=== PATIENT | female | born 1965 | race Caucasian/White ===

== ENCOUNTER 2020-01-01 06:34 | Day surgery (SDC) | payer MEDICAID, SELFPAY ==
[2019-12-31 12:14] VITALS: BMI 35.6
--- NOTE | 2020-01-01 06:52 | W.PM.OPSUD ---
Surgery/Procedure H&P Update DATE OF PROCEDURE: January 01, 2020 DATE H&P PERFORMED: 12/02/19 H&P UPDATE INFORMATION: No changes to prior documentation PLANNED PROCEDURE: Operation Date: 01/01/20 07:30 Proposed Procedures p EGD(Not Applicable) - Jony Nunes MD
--- NOTE | 2020-01-01 07:01 | ANES.PREANE2 ---
Pre-Anesthetic Assessment Pre-Anesthetic Assessment: Height/Weight: Height 1.57 m Weight 88.451 kg Proposed Procedure: Operation Date: 01/01/20 07:30 Proposed Procedures p EGD(Not Applicable) - Jony Nunes MD Familial anesthetic complications: denies Was Beta Gregory taken within 24 hours: N/A Last intake: Intake Last Liquid Date 12/31/19 Last Liquid Time 22:30 Last Solid Date 12/31/19 Last Solid Time 17:00 Last Intake: 00:00 Social: Social History: Tobacco and No alcohol Packs per day: 1 ppd Pack years: 40 History/ROS: No significant history except as noted Pulmonary: Pulmonary: COPD and SOB CV/HEM: CV/HEM: Arrythmia and HTN : : None reported Hepatic: Hepatic: None reported GI: GI: GERD (controlled well ) Comments: hernia unsure what kind Metabolic: Metabolic: DM (pre diabetic ), Morbid obesity and Thyroid (hyothyroid ) Musc/skel: Musc/skel: None reported Neuropsych: Neuropsych: Anxiety, Bipolar and Depression Anesthetic Plan: ASA status: 3 Anesthesia: Anesthesia Evaluation and MAC Data Anesthesia Cardiac Studies: No Data to Display
[2020-01-01 07:03] VITALS: BP 152/110; PULSE 91; RESP 18; TEMP 36; O2SAT 99
[2020-01-01] MEDS: sodium chloride 0.9% 1,000 ML 30 ML IV (07:04)
[2020-01-01 07:39] VITALS: BP 157/104; PULSE 71; RESP 16; TEMP 36.3; O2SAT 97
[2020-01-01 07:48] VITALS: BP 158/92; PULSE 68; RESP 18; O2SAT 98
--- NOTE | 2020-01-01 08:11 | ANE.PACU2 ---
Inpatient post-anesthesia follow up: Airway intact: Yes Vital signs: Temperature 97.3 F Pulse Rate 68 Respiratory Rate 18 Blood Pressure 158/92 Pulse Oximetry 98 Oxygen Delivery Me thod Room Air Oxygen Flow Rate 3 Fraction of Inspir ed Oxygen Hydration adequate: Yes Nausea and vomiting: No Mental status: Baseline
[2020-01-02 06:34] LABS: H. Pylori / CLO Test Negative
== END 2020-01-01 07:55 | disposition home or self-care (01) ==
PROVIDERS: PCP Nurse Practitioner; Visit Provider Surgery
PROC: 0DJ08ZZ Inspection of Upper Intestinal Tract, Via Natural or Artificial Opening Endoscopic (ICD-10-PCS; CPT 43235; principal; 2020-01-01 07:30)
DX: R10.13 Epigastric pain (principal); R14.0 Abdominal distension (gaseous); K44.9 Diaphragmatic hernia without obstruction or gangrene; K29.70 Gastritis, unspecified, without bleeding; J44.9 Chronic obstructive pulmonary disease, unspecified; F17.210 Nicotine dependence, cigarettes, uncomplicated; I10 Essential (primary) hypertension; K21.9 Gastro-esophageal reflux disease without esophagitis; E11.9 Type 2 diabetes mellitus without complications; E66.01 Morbid (severe) obesity due to excess calories; Z68.35 Body mass index [BMI] 35.0-35.9, adult
CPT/HCPCS: 12345; 43239; 87077; J2704; J3010; J7030

== ENCOUNTER 2020-01-29 07:15 | Outpatient (CLI) | payer MEDICAID, SELFPAY ==
--- NOTE | 2020-01-29 07:20 | US_ITS ---
WS: [id number] RIGHT UPPER QUADRANT ULTRASOUND HISTORY: RUQ PAIN COMPARISON: None available. Liver: 17.3 cm in length. Moderately enlarged liver with diffuse hepatic steatosis. Portal triads are obscured. No mass or bile duct dilatation. Gallbladder: Normally distended gallbladder. There are several small stones present in the gallbladde r. No pericholecystic fluid. No gallbladder wall thickening. CBD: 0.3 cm Pancreas: Poorly visualized pancreas. Right kidney: 10.7 cm in length. Normal echogenicity with no mass or hydronephrosis. Aorta and IVC: Unremarkable. No ascites. US/US gall bladder [id number] IMPRESSION: 1. Cholelithiasis without evidence for acute cholecystitis. 2. Moderate hepatomegaly with diffuse hepatic steatosis. 3. No bile duct dilatation.
== END 2020-01-29 07:16 | disposition home or self-care (01) ==
LOC: US 07:18
PROVIDERS: PCP Nurse Practitioner; Visit Provider Surgery
DX: R10.11 Right upper quadrant pain (principal); R11.2 Nausea with vomiting, unspecified; K80.20 Calculus of gallbladder without cholecystitis without obstruction; R16.0 Hepatomegaly, not elsewhere classified; K76.0 Fatty (change of) liver, not elsewhere classified
CPT/HCPCS: 76705

== ENCOUNTER → 2020-02-24 09:08 | Outpatient (BNVA) | payer MEDICAID, SELFPAY | PROVIDERS: PCP Nurse Practitioner; Visit Provider Internal Medicine | DX: Z01.812 Encounter for preprocedural laboratory examination (principal) | CPT/HCPCS: 87635 ==

== ENCOUNTER 2020-02-26 06:53 | Day surgery (SDC) | payer MEDICAID, SELFPAY ==
[2020-02-25 10:17] VITALS: BMI 33.8
[2020-02-26] VITALS (7 sets, daily range): BP systolic 136–160; BP diastolic 73–99; PULSE 52–83; RESP 13–18; TEMP 36.1–36.2; O2SAT 93–100
[2020-02-26] MEDS: sodium chloride 0.9% 1,000 ML 30 ML IV (07:28)
--- NOTE | 2020-02-26 07:41 | W.PM.OPSUD ---
Surgery/Procedure H&P Update DATE OF PROCEDURE: February 26, 2020 DATE H&P PERFORMED: 12/02/19 H&P UPDATE INFORMATION: No changes to prior documentation PLANNED PROCEDURE: Operation Date: 02/26/20 08:25 Proposed Procedures p Laparoscopic Cholecystectomy possibly open(Not Applicable) - Jony Nunes MD
--- NOTE | 2020-02-26 07:44 | ANES.PREANE2 ---
Pre-Anesthetic Assessment Pre-Anesthetic Assessment: Height/Weight: Height 1.57 m Weight 83.915 kg Temp Pulse Resp BP Pulse Ox 97.0 F L 75 18 136/99 100 02/26/20 07:08 02/26/20 07:08 02/26/20 07:08 02/26/20 07:08 02/26/20 07:08 Preop Diagnosis: cholelithaisis Proposed Procedure: Operation Date: 02/26/20 08:25 Proposed Procedures p Laparoscopic Cholecystectomy possibly open(Not Applicable) - Jony Nunes MD Familial anesthetic complications: none Was Beta Gregory taken within 24 hours: N/A Last intake: Intake Last Liquid Date 02/25/20 Last Liquid Time 23:00 Last Solid Date 02/25/20 Last Solid Time 18:00 Social: Social History: Tobacco Exam: Pre-Anes Outpt Exam: alert, oriented x 3, clear to auscultation bilaterally and regular rate & rhythm Airway: Cervical ROM: WNL MP: 3 Dentition: Full CV/HEM: CV/HEM: HTN Metabolic: Metabolic: Thyroid Anesthetic Plan: ASA status: 2 Anesthesia: General Risk of > 500 ml blood loss (7ml/kg in children): No Meds/Allergies Current Medications: Current Medications Generic Name Dose Route Start Last Admin Trade Name Freq PRN Reason Stop Dose Admin Sodium Chloride 1,000 mls @ 30 ml s/hr 02/26/20 07:15 02/26/20 07:28 Sodium Chloride 0.9% IV 02/27/20 07:14 30 mls/hr .Q24H IMANI Administration Data Anesthesia Cardiac Studies: No Data to Display
[2020-02-26 08:12] LABS: Alanine Aminotransferase 34 U/L (0-33); Albumin Level 4.2 g/dL (3.5-5.2); Alkaline Phosphatase 87 IU/L (35-105); Aspartate Amino Transferase 20 U/L (0-32); Globulin 3.2 g/dL (1.3-4.6); Total Bilirubin 0.2 mg/dL (0.15-1.2); Total Protein 7.4 g/dL (6.6-8.7)
--- NOTE | 2020-02-26 09:56 | PM.OP ---
Operative Report Date of procedure: February 26, 2020 Pre-op Diagnosis: Symptomatic cholelithiasis. Post-op diagnosis: same Procedure Done: Laparoscopic cholecystectomy. Specimens removed/disposition: Gallbladder and contents. Surgeon: Jony Nunes Anesthesia: General Estimated blood loss (mL): 5 Complications: None. Condition: stable Disposition: PACU Procedure: The patient was brought to the Operating Room and was placed in a supine position on the Operating Room table. General endotracheal anesthesia was induced. The abdomen was prepped and draped in a sterile fashion. A small vertical incision was carried out in the inferior aspect of the umbilicus. Blunt dissection was carried out down to the fascia, which was grasped with a Fermin clamp. A stay suture of 0 Vicryl was placed on either side of the midline and the midline fascia was incised. The underlying peritoneum was opened bluntly and the Graciela port was placed directly into the peritoneal cavity and was held in place with the inflatable balloon. The peritoneal cavity was insufflated with carbon dioxide. The laparoscope was used to inspect the abdominal cavity. No gross abnormalities were initially noted. A 5 millimeter port was placed in the epigastrium under direct vision. Two 5-millimeter ports were placed on the right side of the abdomen under direct vision. The gallbladder was grasped and was elevated. The patient had some light adhesions to the infundibular region which were taken down using blunt dissection with a minimum of cautery to maintain hemostasis. Blunt dissection and hydrodissection were carried out in the infundibular region of the gallbladder and the cystic duct and cystic artery were identified. The gallbladder was partially removed from the liver bed using cautery and the spatula to confirm the anatomy before the structures were clipped and divided. The gallbladder was then removed from the liver bed using cautery and the spatula. After the gallbladder had been removed from the liver bed, the laparoscope was moved to the epigastric port and the gallbladder was removed from the peritoneal cavity through the umbilical port site. The stay sutures of Vicryl were tied to each other at the umbilicus, closing the defect so that it was airtight. The perihepatic spaces were irrigated with saline and the liver bed was reinspected. No ongoing problems were seen. The remaining ports were removed from the abdominal wall and the pneumoperitoneum was evacuated. All skin incisions were closed using inverted interrupted sutures of 4-0 Vicryl. Benzoin and Steri-Strips were placed over the incisions and Band-Aids followed. The patient was taken to the Recovery Area in stable condition postoperatively.
--- NOTE | 2020-02-26 11:06 | SUR.PHASEII ---
patient o2 on room air is 100%. patient states she feels like she can't get a full breath. placed pt on 2l o2 NC for SOB.
--- NOTE | 2020-02-26 11:15 | ANE.PACU2 ---
Inpatient post-anesthesia follow up: Airway intact: Yes Vital signs: Temperature 97.2 F Pulse Rate 58 Respiratory Rate 18 Blood Pressure 141/73 Pulse Oximetry 98 Oxygen Delivery Me thod Nasal Cannula Oxygen Flow Rate 2 Fraction of Inspir ed Oxygen Hydration adequate: Yes Nausea and vomiting: No Pain level: 2 Mental status: Baseline
--- NOTE | 2020-02-26 11:27 | SUR.PHASEII ---
patient ambulated to bathroom on room air. pt states she feels like she can breathe easier so o2 nc removed and pt placed on room air.
== END 2020-02-26 11:45 | disposition home or self-care (01) ==
PROVIDERS: PCP Nurse Practitioner; Visit Provider Surgery
PROC: 0FT44ZZ Resection of Gallbladder, Percutaneous Endoscopic Approach (ICD-10-PCS; CPT 47562; principal; 2020-02-26 08:25)
DX: K80.10 Calculus of gallbladder with chronic cholecystitis without obstruction (principal); I10 Essential (primary) hypertension; Z88.0 Allergy status to penicillin; Z88.2 Allergy status to sulfonamides; F17.210 Nicotine dependence, cigarettes, uncomplicated; Z79.82 Long term (current) use of aspirin; E66.9 Obesity, unspecified; Z68.33 Body mass index [BMI] 33.0-33.9, adult
CPT/HCPCS: 47562; 12345; 36415; 80076; 88304; 96365; J0131; J0690; J1100; J1885; J2405; J2704; J2710; J3010; J3490; J7030

== ENCOUNTER 2024-09-18 14:47 | Outpatient (CLI) | payer MEDICAID, SELFPAY ==
--- NOTE | 2024-09-18 14:51 | CT_ITS ---
WS: [id number] CT TEMPORAL BONES TECHNIQUE: Noncontrast CT of the temporal bones with coronal and sagittal reformatted images. CLINICAL INFORMATION: CHOLESTEATOMA, UNSPECIFIED, LEFT COMPARISON: None. DLP: 302.[address] scans at [facility] use at least one of these dose optimization techniques: automated exposure control; mA and/or kV adjustment per patient size (includes targeted exams where dose is matched to clinical indication); or iterative reconstruction. FINDINGS: RIGHT: Mastoid air cells are well aerated. Normal external auditory canal. Ossicles are normal in appearance. Middle ear is well aerated. Normal tegmen tympani. Semicircular canals and cochlea are normal in appearance. Prussak's space is normal. Normal inner ear structures. Normal vestibular aqueduct. Facial nerve recess is normal. LEFT Prior postoperative changes LEFT partial mastoidectomy. Soft tissue thickening in the mastoidectomy defect extending into the middle ear with near complete opacification of the middle ear and Prussak space. 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 Semicircular canals appear normal. Normal cochlea. Resection or e rosion of the scutum.I CT/CT temporal bone wo con* [id number] IMPRESSION: 1. Diffuse soft tissue masslike thickening in the LEFT mastoidectomy defect wi th complete soft tissue opacification of the middle ear and Prussak space suspi cious for recurrent cholesteatoma. Some of this may represent inflammatory or g ranulation tissue. Recommend direct visualization. 2. 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 3. RIGHT inner ear structures and mastoid air cells are normal.
== END 2024-09-18 14:48 | disposition home or self-care (01) ==
PROVIDERS: PCP Family Medicine; Visit Provider Specialist
DX: H71.92 Unspecified cholesteatoma, left ear (principal); Z98.890 Other specified postprocedural states; H74.8X2 Other specified disorders of left middle ear and mastoid; M79.89 Other specified soft tissue disorders; R93.89 Abnormal findings on diagnostic imaging of other specified body structures
CPT/HCPCS: 70480